=== PATIENT | female | born 1950 | race Caucasian/White ===

== ENCOUNTER 2018-04-18 13:57 | Outpatient (CLI) | payer MEDICARE ==
--- NOTE | 2018-04-18 15:26 | BD ---
BONE DENSITOMETRY USING DEXA: Date: 04/18/18 HISTORY: Postmenopausal screening for osteoporosis. FINDINGS: Lumbar Spine: BMD (g/cm2) L1 1.039 T-Score: 0.4 Z-Score: 2.2 L2 0.997 T-Score: -0.3 Z-Score: 1.7 L3 1.054 T-Score: -0.3 Z-Score: 1.8 L4 0.932 T-Score: -1.2 Z-Score: 0.9 L1-L4 1.004 T-Score: -0.4 Z-Score: 1.6 Femoral Neck: 0.800 T-Score: -0.4 Z-Score: 1.2 Total Femur: 1.027 T-Score: 0.7 Z-Score: 2.1 IMPRESSION: Normal bone mineral density. No evidence of osteopenia/osteoporosis. POS: C
== END 2018-04-18 13:58 | disposition home or self-care (01) ==
LOC: BICMAMMO 13:57
PROVIDERS: ATTEND Internal Medicine
DX: Z12.31 Encounter for screening mammogram for malignant neoplasm of breast (principal); M81.0 Age-related osteoporosis without current pathological fracture; M85.88 Other specified disorders of bone density and structure, other site; Z98.82 Breast implant status
CPT/HCPCS: 77063; 77067; 77080

== ENCOUNTER 2020-10-26 09:28 | Outpatient (CLI) | payer MEDICARE | END 2020-10-26 09:29 | disposition home or self-care (01) | LOC: BICMAMMO 09:28 | PROVIDERS: ATTEND Family Medicine | DX: Z12.31 Encounter for screening mammogram for malignant neoplasm of breast (principal); Z98.82 Breast implant status | CPT/HCPCS: 77063; 77067 ==

== ENCOUNTER 2023-09-03 13:47 | Outpatient (CLI) | payer OTHER | END 2023-09-03 13:48 | disposition home or self-care (01) | LOC: BICMAMMO 13:47 | PROVIDERS: ATTEND Family Medicine | DX: Z13.820 Encounter for screening for osteoporosis (principal); Z78.0 Asymptomatic menopausal state | CPT/HCPCS: 77080 ==